=== PATIENT | female | born 1965 | race Caucasian/White ===

== ENCOUNTER 2018-02-27 08:13 | Day surgery (SDC) | payer OTHER ==
[2018-02-27] MEDS: BUPIVACAINE 0.5%/EPI (SDV) 30 ML INJ INJ
[2018-02-27] MEDS: LIDOCAINE 1% (MPF) 30 ML INJ INJ
[~2018-02-27 08:13] MED LIST: ATROPINE 1 MG/10 ML SYRINGE IV; CEFAZOLIN 1 GM INJ; CEFAZOLIN 2 GM/50 ML (PMX) 50 ML (FOR WT < 120 KG) IVPB; DIPHENHYDRAMINE 50 MG INJ IV; EPHEDrine SULFATE 50 MG/5 ML SYG IV; FENTAnyl 50 MCG/ML VIAL IV; HYDROmorphONE (0.2 MG/ML) 10ML SYG IV; LABETALOL HCL 20MG INJ IV; LACTATED RINGER'S 1,000 ML IV; MEPERIDINE 25 MG INJ IV; MIDAZOLAM 1 MG/ML 2 ML INJ IV; ONDANSETRON 4 MG INJ IV; OXYCODONE/ACETAMINOPHEN (5/325) TAB PO; SOD CHLORIDE 0.9% 1,000 ML IV; hydrALAzine 20 MG INJ IV; metroNIDAZOLE 500 MG/100 ML NS IVPB; metroNIDAZOLE 500 MG/NS (PMX) 100 ML IVPB; morphine (1 MG/ML) 10ML SYRINGE IV
[2018-02-27] MEDS ORDERED: GLYCOPYRROLATE 0.4 MG INJ (09:13)
[2018-02-27] MEDS ORDERED: FENTAnyl 50 MCG/ML VIAL (09:13)
[2018-02-27] MEDS ORDERED: PROPOFOL 20 ML (09:13)
[2018-02-27] MEDS ORDERED: LIDOCAINE 2% (SDV) 5 ML INJ (09:13)
[2018-02-27] MEDS ORDERED: NEOSTIGMINE 3 MG/3 ML SYRINGE (09:13)
[2018-02-27] MEDS ORDERED: MIDAZOLAM 1 MG/ML 2 ML INJ (09:13)
[2018-02-27] MEDS ORDERED: ROCURONIUM 50 MG INJ (09:13)
[2018-02-27] MEDS ORDERED: DEXAMETHASONE 4 MG/ML 1 ML INJ (09:14)
[2018-02-27] MEDS ORDERED: ONDANSETRON 4 MG INJ (09:14)
[2018-02-27] MEDS ORDERED: SUCCINYLCHOLINE CHLORIDE 100 MG/5 ML SYG IV (09:15)
[2018-02-27] MEDS ORDERED: LIDOCAINE 1% (MPF) 30 ML INJ (09:41)
[2018-02-27] MEDS ORDERED: SUGAMMADEX SODIUM 200 MG/2 ML VIAL IV (10:40)
== END 2018-02-27 12:49 | disposition home or self-care (01) ==
LOC: SDS 08:13
DX: K60.3 Anal fistula (principal); E78.5 Hyperlipidemia, unspecified; I10 Essential (primary) hypertension; E66.01 Morbid (severe) obesity due to excess calories; Z68.43 Body mass index [BMI] 50.0-59.9, adult
CPT/HCPCS: 45300; 82962; 88304